=== PATIENT | male | born 1990 | race Caucasian/White ===

== ENCOUNTER 2019-08-22 00:46 | Emergency (ER) | payer OTHER ==
[~2019-08-22] VITALS: Ht 182.9 cm; Wt 84.3 kg
[2019-08-22] MEDS ORDERED: OXCA600T9 PO (01:08)
[2019-08-22] MEDS ORDERED: BENZ100C PO (01:20)
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
[2019-08-22 01:30] VITALS: BP 126/78
[2019-08-22] MEDS ORDERED: BENZONATATE 100 MG CAPSULE. PO ONE (01:30)
--- NOTE | 2019-08-22 01:46 | RAD ---
AP chest x-ray HISTORY: Cough, congestion and chest pain. FINDINGS: Heart size normal. Mediastinal silhouette is normal. No pneumothorax, pulmonary opacities or pleural effusions. Bones are unremarkable. IMPRESSION: No acute process. Electronically signed by: Umer Childress MD (08/22/2019 1:43 AM) [facility] [id number]
== END 2019-08-22 01:35 | disposition home or self-care (01) ==
LOC: ER 00:46
DX: R09.1 Pleurisy (principal); J06.9 Acute upper respiratory infection, unspecified; B97.89 Other viral agents as the cause of diseases classified elsewhere; Z88.0 Allergy status to penicillin
CPT/HCPCS: 71045; 99283